=== PATIENT | female | born 1985 | race Caucasian/White ===

== ENCOUNTER 2016-10-25 20:17 | Emergency (ER) | payer OTHER ==
--- NOTE | ~2016-10-25 | CR72 ---
[facility] A Service of [facility] RADIOLOGY TEXT RESULTS PATIENT: JORDYN RIOS LOCATION: [facility] : 83 UNIT #: [id number] AGE: [address]: Aleksander Pearson MD SEX: F ORDER DR: [id number] [facility] [address] [place], [place] [address] [id number] E MR#: [id number] Acc #: [id number] NAME: JORDYN RIOS : 1985 SEX: F STUDY DATE/TIME: 10/25/2016 22:09 UNIT: [facility] ROOM: STUDY DESCRIPTION: CR Chest Single View Portable Attending Physician: Mannie Pearson M.D. Ordering Physician: Naeem Kendall M.D. Primary Care Physician: Trina Granado MEDICAL IMAGING REPORT This report is preliminary unless electronic signature is present EXAM AP portable chest DATE 10/25/2016 at 2209 HISTORY Chest pain, shortness breath since yesterday. COMPARISON AP portable chest 12/22/2015. FINDINGS A single AP portable view of the chest shows both lungs to be clear. The heart is normal in size. The mediastinal contour is normal. No significant bone abnormalities are seen. IMPRESSION Normal portable chest. Dictated by... Dinorah Salas M.D. THIS IS AN ELECTRONICALLY VERIFIED REPORT Dinorah Salas M.D. at 10/29/2016 8:48 AM Cheri/chaparro TD: 10/26/2016 07:11 JOB #: [id number] MEDICAL IMAGING REPORT Page 1 of 1 COPY
--- NOTE | ~2016-10-25 | EKG ---
PATIENT: JORDYN RIOS UNIT #: [id number] Ventricular Rate: 98 BPM Atrial Rate: 98 BPM P-R Interval: 146 ms QRS Duration: 68 ms Q-T Interval: 340 ms QTC Calculation(Bezet): 434 ms P [place]: 40 degrees Calculated R [place]: 52 degrees Calculated T [place]: 20 degrees Diagnosis Line: Normal sinus rhythm Diagnosis Line: Normal ECG Diagnosis Line: When compared with ECG of 05-JUL-2014 12:33, Diagnosis Line: No significant change was found Diagnosis Line: Confirmed by DAMIEN CAN MD ([id number]) on Diagnosis Line: 10/29/2016 3:14:07 PM INTERPRETING MD: JUAN JOSÉ ALBERTO
[~2016-10-25 20:17] MED LIST: ALB/IPRATROPIUM/1 E1 INH; ALPRAZOLAM1 MG PO; ASPIRIN81 MG PO; BACITRACIN15 GM TP; IBUPROFEN800 MG PO; LEXAPRO20 MG PO; LORTAB 7.51 TAB PO; MEDROL4 MG/DOSE- PO; METOPROLOL TAR25 MG PO; PRILOSEC20 M1 PO; VOLTAREN75 MG PO; XANAX1 MG PO; ZYRTEC-D TABLE1 EACH PO
[2016-10-25 22:18] LABS: BASOPHIL% 0.4 % (0-2.5); EOSINOPHIL# 0.2 X10e3 (0-0.7); HEMATOCRIT 47.8 % (35.0-45.0); HEMOGLOBIN 15.8 gm/dL (12.0-16.0); LYMPHOCYTE# 1.7 X10e3 (1.0-3.5); LYMPHOCYTE% 14.9 % (17.0-45.0); MEAN CELL VOLUME 84.6 FL (83-96); MEAN CORPUSCULAR HEMOGLOBIN 27.9 PG (28-34); MEAN CORPUSCULAR HGB CONC 32.9 g/dL (30-36); MEAN PLATELET VOLUME 10.6 FL (6.5-11.5); MONOCYTE# 0.9 X10e3 (0-1.0); MONOCYTE% 7.6 % (3.0-12.0); NEUTROPHIL# 8.5 X10e3 (1.5-7.1); NEUTROPHIL% 75.1 % (40-75); PLATELET COUNT 285 X10e3 (140-420); RED BLOOD COUNT 5.66 X10e (3.90-5.30); WHITE BLOOD COUNT 11.3 X10e3 (4.0-10.5)
[2016-10-25 22:20] LABS: DIFF IND NO
[2016-10-25 22:33] LABS: PARTIAL THROMBOPLASTIN TIME 28.2 SECONDS (23.5-31.3); PROTHROMBIN TIME (PATIENT) 10.2 SECONDS (9.6-11.5)
[2016-10-25 22:35] LABS: POC - CKMB <1.0 ng/mL (0.0-7.9); POC - TROPONIN <0.05 ng/mL (<=0.05)
[2016-10-25 22:40] LABS: ALBUMIN SERUM 4.9 g/dL (3.5-5.0); BILIRUBIN, DIRECT 0.1 mg/dL (0.0-0.2); BILIRUBIN,INDIRECT 0.7 mg/dL (0.0-0.9); BILIRUBIN,TOTAL 0.8 mg/dL (0.2-2.0); BUN/CREATININE RATIO 15.55; CALCIUM SERUM 8.9 mg/dL (8.4-10.2); CREATININE SERUM 0.9 mg/dL (0.6-1.4); GLOM FILT RATE Estimated 84.7 mL/min (>60); POTASSIUM 3.5 mmol/L (3.5-5.1); PROTEIN TOTAL SERUM 8.2 g/dL (6.0-8.3)
[2016-10-25 23:51] LABS: POC - CKMB <1.0 ng/mL (0.0-7.9); POC - TROPONIN <0.05 ng/mL (<=0.05)
== END 2016-10-26 00:32 | disposition home or self-care (01) ==
LOC: CED 20:17
PROVIDERS: Emergency Medicine
DX: R07.89 Other chest pain (principal); F41.9 Anxiety disorder, unspecified; E05.00 Thyrotoxicosis with diffuse goiter without thyrotoxic crisis or storm; Z87.891 Personal history of nicotine dependence
CPT/HCPCS: 36415; 71010; 80048; 80076; 82553; 84484; 85025; 85379; 85610; 85730; 93005; 96374; 99284; J1885